=== PATIENT | male | born 1965 | race Caucasian/White ===

== ENCOUNTER 2017-04-25 14:55 | Outpatient (RCR) | payer OTHER ==
[2017-04-24 15:20] VITALS: BP 148/86; PULSE 80; TEMP 98.5
[2017-04-24 15:38] LABS: BASO # 0.1 (0.0-0.2); BASO % 0.6 % (0.0-2.0); EOS # 0.6 (0.0-0.7); GRAN # 4.9 (1.4-6.5); GRAN % 58.4 % (42.2-75.2); HEMATOCRIT 45.2 % (42.0-52.0); HEMOGLOBIN 15.5 g/dl (13.5-18.0); LYMPH % 24.2 % (20.0-51.0); MEAN CELL VOLUME 87 fl (80.0-100.0); MEAN CORPUSCULAR HEMOGLOBIN 30 pg (27.0-31.0); MEAN CORPUSCULAR HGB CONC 34 g/dl (33.0-37.0); MEAN PLATELET VOLUME 8.5 fl (7.4-10.4); MONO # 0.8 (0.1-0.6); MONO % 9.2 % (1.7-9.3); PLATELET COUNT 252 K/mm3 (130-400); RED BLOOD COUNT 5.17 M/mm3 (4.20-5.60); REDCELL DISTRIBUTION WIDTH-CV 12.4 % (11.5-14.5); WHITE BLOOD COUNT 8.4 K/mm3 (4.8-10.8)
[2017-04-24 15:47] LABS: ADJUSTED CALCIUM 9.2 mg/dL (8.4-10.2); ALBUMIN 4.5 gm/dL (3.5-5.0); BILIRUBIN,TOTAL 0.6 mg/dL (0.0-1.0); CALCIUM 9.6 mg/dL (8.4-10.2); CREATININE, serum 0.98 mg/dL (0.66-1.25); TOTAL PROTEIN 7.5 gm/dL (6.4-8.2)
[~2017-04-25] VITALS: Ht 172.7 cm; Wt 83.6 kg
[~2017-04-25 14:55] MED LIST: PRINIVIL20 MG PO; SOLU-MEDRO1000 MG/1 IJ
[2017-04-27 14:26] VITALS: BP 130/77; PULSE 73; TEMP 98.4
[2017-04-28 14:03] VITALS: BP 141/81; PULSE 91; TEMP 98.4
== END 2017-04-28 15:50 | disposition home or self-care (01) ==
LOC: EUO 04-27 14:30
PROVIDERS: Psychiatry & Neurology Neurology
DX: G35 Multiple sclerosis (principal); I10 Essential (primary) hypertension; Z79.899 Other long term (current) drug therapy
CPT/HCPCS: J2930; J7050